=== PATIENT | female | born 1935 | race Caucasian/White ===

== ENCOUNTER 2020-06-08 11:19 | Inpatient (IN) | payer MEDICARE, BC ==
[2020-06-08] MEDS ORDERED: Diltiazem 125 MG/25 ML ONE (11:43)
[2020-06-08 11:50] LABS: #Eosinphils 0.2 thou/uL (0.0-0.7); #Lymphocytes 1.4 thou/uL (1.20-3.40); #Monocytes 1.1 thou/uL (0.11-0.59); #Neutrophils 6.4 thou/uL (1.40-6.50); %Basophils 0.5 % (0.0-1.0); %Eosinophils 2.4 % (0.0-10.0); %Lymphocytes 15.6 % (21.0-51.0); %Monocytes 11.5 % (0.0-10.0); Hemoglobin 10.7 g/dL (12.0-16.0); Mean Corpuscular HGB CONC 30.9 g/dL (32.0-36.0); Mean Corpuscular Volume 93.9 fL (78.0-98.0); Mean Platelet Volume 8.3 fL (7.4-10.4); Platelet Count 479 thou/uL (130-400); RBC Distribution Width 15.2 % (11.5-14.5); Red Blood Cell (RBC) Count 3.68 mill/uL (4.20-5.40); White Blood Cell (WBC) Count 9.2 thou/uL (4.8-10.8)
--- NOTE | 2020-06-08 12:04 | RAD ---
Frontal radiograph chest: 06/08/2020 COMPARISON: 05/15/2020 HISTORY: Atrial fibrillation FINDINGS: The patient is slightly rotated to the right. No pneumothorax or pleural fluid is seen. The re is no lobar consolidation or alveolar edema. IMPRESSION: No acute findings.
[2020-06-08 12:13] LABS: ALT (SGPT) 9 U/L (8-55); AST (SGOT) 21 U/L (5-34); Albumin 3.3 g/dL (3.4-4.8); Alkaline Phosphatase 106 U/L (40-110); Anion Gap 13 mmol/L (10-20); BUN (Urea Nitrogen) 20 mg/dL (9.8-20.1); Bilirubin, Total 0.7 mg/dL (0.2-1.2); Calc. Creatinine Clearance 0 mL/min (70-130); Calcium 9.2 mg/dL (7.8-10.44); Carbon Dioxide 26 mmol/L (23-31); Chloride 101 mmol/L (98-107); Estimated GFR-MDRD 84; Globulin 3.3 g/dL (2.4-3.5); Glucose 171 mg/dL (83-110); Potassium 4.2 mmol/L (3.5-5.1); Protein, Total 6.6 g/dL (6.0-8.3); Sodium 136 mmol/L (136-145)
[2020-06-08] MEDS ORDERED: Iopamidol-370 76% 500 ML 1 ML ONE (14:20)
--- NOTE | 2020-06-08 14:29 | CT ---
CTA CHEST WITH CONTRAST: Axial tomograms were obtained through the chest with multiplanar reconstruction and 3D postprocessing following an angio protocol. INDICATION: Shortness of breath, palpitations. FINDINGS: The pulmonary arteries show adequate opacification. No evidence of pulmonary embolus identified. Th oracic aorta is unremarkable with no evidence of dissection. Mild atherosclerotic changes are seen. No aneurysm. The lung fuentes show mild vascular engorgement. There are mild chronic-appearing parenchymal changes with interstitial thickening in the periphery and interstitial and early honeycomb-type changes in t he posterior lower lobes bilaterally. Stranding in the posterior lung bases. No evidence of effusio n. No evidence of infiltrate. No adenopathy. Images through the upper abdomen unremarkable. Degen erative changes in the spine. IMPRESSION: 1. No evidence of pulmonary embolus. 2. No acute lung process. There are chronic lung changes as described. POS: ROMANA
[2020-06-08 14:51] LABS: Bilirubin Negative (Negative); Blood, Urine Negative (Negative); Clarity Clear (Clear); Glucose, Urine (Dipstick) Normal (Negative); Ketone, Urine Negative (Negative); Leukocyte Negative Leu/uL (Negative); Nitrite Negative (Negative); Protein, Urine (Dipstick) Negative (Neg-Trace); Specific Gravity, Urine 1.047 (1.002-1.036); Urobilinogen Normal mg/dL (Less than 2)
[2020-06-08] MEDS ORDERED: Senokot S 8.6-50 MG TAB PO PRN (14:57)
[2020-06-08] MEDS ORDERED: Acetaminophen 325 MG TAB PO PRN (14:57)
[2020-06-08] MEDS ORDERED: Cyclobenzaprine 10 MG TAB PO PRN (15:30)
[2020-06-08] MEDS ORDERED: Aspirin Chewable 81 MG TAB ONE (15:34)
[2020-06-08 16:03] LABS: Troponin I 0.017 ng/mL (< 0.028)
--- NOTE | 2020-06-08 16:42 | HP ---
CHIEF COMPLAINT: Palpitations and shortness of breath. HISTORY OF PRESENT ILLNESS: An 84-year-old female with recent hospitalization for hip surgery and finished two weeks of rehab and went to her Assisted Living just two days ago, presenting today with atrial fibrillation with RVR. She woke up this morning, feeling not that good and then she used restroom with a walker, noticed that she is having short of breath and pounding sensation in her heart. She has history of afib but this is the first time, she is experiencing palpitations. EMS brought her with initial heart rate of 155. EKG showed pulse of 135 and afib. After shortly starting her on Cardizem drip in the ER, her heart rate improved to 70s. The patient was discharged with Bactrim for E coli on May 31. As part of the hip preop evaluation, she was evaluated by the [employer] assistant manager and started on flecainide and Eliquis for atrial fibrillation at that time. She is compliant in taking her medicine. Currently during my evaluation, her heart rate is in the 80s and it is in sinus rhythm. She is well appearing. Being on a Bactrim, there may be drug interaction triggering her atrial fibrillation. We will admit for further management. REVIEW OF SYSTEMS: She just discharged recently on May 31 after right hip surgery for mechanical fall. She denied any fever, night sweats, chills, or productive cough. No nausea, vomiting, abdominal pain, constipation, diarrhea, hematuria, dysuria, or hematochezia. Denies any headache, tingling, or numbness in her extremities. Rest of the review of systems are negative. PAST MEDICAL HISTORY: Atrial fibrillation, neuropathy, and history of colitis. PAST SURGICAL HISTORY: Hysterectomy. SOCIAL HISTORY: Does not use illicit drugs or alcohol. No smoking history. She lives at [facility]. ALLERGIES: NO KNOWN DRUG ALLERGY. MEDICATIONS: From her last discharge: 1. Toprol 25 mg daily. 2. Ibuprofen as needed. 3. Eliquis 2.5 mg twice a day. 4. Aspirin 81 mg daily. 5. Vitamin C 500 mg twice a day. 6. Bactrim 2 tablets twice a day. 7. Gabapentin 600 mg 3 times a day. 8. Flexeril 5 mg as needed. 9. Flecainide 50 mg q.12 hours. FAMILY HISTORY: Noncontributory. PHYSICAL EXAMINATION: VITAL SIGNS: Temperature 98.2, pulse 84, blood pressure 133/64, and saturating 97% on room air. GENERAL: The patient is alert and oriented x3. She appears well for her age. HEENT: Pupils are equal, round, and reactive to light. Anicteric. Mucous membranes moist. LABORATORY DATA: EKG interpreted by me, shows normal ST-T wave and atrial fibrillation at rate of 135. IMPRESSION AND PLAN: An 84-year-old female with recent right hip surgery, undergone a rehab and went back to her home two days ago, presenting back with short of breath and atrial fibrillation. 1. Atrial fibrillation with rapid ventricular response. After short course of Cardizem drip, she is reverted back to sinus rhythm and rate is controlled now. I am going to restart her home medication of flecainide. Anticoagulation with Eliquis 2.5 based on her age and GFR. Urine culture on May 31 grew Enterococcus faecalis, pansensitive. She has finished almost 8 days of antibiotics. I do not think she requires any further antibiotics. Current UA is negative for any sign of infection. Her white count is normal at 9.2, so I will defer continuing the antibiotics. 2. Elevated D-dimer of 3.1. She was tested for COVID in April and that was negative. Current CT chest is negative for PE. May be refelctive of recent hip surgery. 3. Recent hip surgery. We will request the Physical Therapy to continue the therapy. 4. Does not require an echo as that was done on May 18 and the EF of 65%, normal LA and LV function. 5. COVID was tested and negative on April 30. 6. She is on several sedative medications including gabapentin at high doses, Flexeril, ibuprofen as well as tramadol as probably part of discharging after hip surgery. We will provide now analgesic as needed and reduce the gabapentin, as I am not sure she needs this high dose at this point. 7. Deep venous thrombosis prophylaxis with Eliquis. 8. I did not consult Cardiology at this point as she seems to be stable and afib reverted back to sinus and rate controlled and she can follow in the clinic as she got recently discharged unless current clinical course dictates otherwise. Job ID: [id number] [facility]
[2020-06-08 16:55] VITALS: BMI 18.4
[2020-06-08] MEDS: Ferrous Sulfate 325 MG TAB PO SCH (17:39)
[2020-06-08 18:54] LABS: Troponin I 0.019 ng/mL (< 0.028)
[2020-06-08 19:05] LABS: Hemoglobin 9.2 g/dL (12.0-16.0); Platelet Count 386 thou/uL (130-400)
[2020-06-08] MEDS: Gabapentin 100 MG CAP PO SCH (20:08)
[2020-06-08] MEDS: Ascorbic Acid 500 mg Chewable Tablet PO SCH (20:08)
[2020-06-08] MEDS: Apixaban 2.5 MG TAB PO SCH (20:08)
[2020-06-08] MEDS: Flecainide 50 MG TAB PO SCH (20:08)
[2020-06-09 04:55] LABS: #Basophils 0.1 thou/uL (0.0-0.2); #Eosinphils 0.7 thou/uL (0.0-0.7); #Lymphocytes 1.6 thou/uL (1.20-3.40); #Monocytes 0.8 thou/uL (0.11-0.59); #Neutrophils 3.8 thou/uL (1.40-6.50); %Basophils 0.9 % (0.0-1.0); %Eosinophils 9.6 % (0.0-10.0); %Lymphocytes 23.4 % (21.0-51.0); %Neutrophils 55.2 % (42.0-75.0); Hemoglobin 8.8 g/dL (12.0-16.0); Mean Corpuscular HGB CONC 30.2 g/dL (32.0-36.0); Mean Corpuscular Hemoglobin 28.5 pg (27.0-31.0); Mean Corpuscular Volume 94.4 fL (78.0-98.0); Mean Platelet Volume 8.7 fL (7.4-10.4); Platelet Count 390 thou/uL (130-400); RBC Distribution Width 15.2 % (11.5-14.5); Red Blood Cell (RBC) Count 3.09 mill/uL (4.20-5.40); White Blood Cell (WBC) Count 6.8 thou/uL (4.8-10.8)
[2020-06-09 05:11] LABS: ALT (SGPT) Less than 7 U/L (8-55); AST (SGOT) 18 U/L (5-34); Albumin 2.8 g/dL (3.4-4.8); Alkaline Phosphatase 88 U/L (40-110); Anion Gap 13 mmol/L (10-20); BUN (Urea Nitrogen) 16 mg/dL (9.8-20.1); Bilirubin, Total 0.5 mg/dL (0.2-1.2); Calc. Creatinine Clearance 74 mL/min (70-130); Calcium 8.5 mg/dL (7.8-10.44); Carbon Dioxide 25 mmol/L (23-31); Chloride 104 mmol/L (98-107); Estimated GFR-MDRD Greater than 90; Globulin 2.9 g/dL (2.4-3.5); Glucose 95 mg/dL (83-110); Potassium 4.3 mmol/L (3.5-5.1); Protein, Total 5.7 g/dL (6.0-8.3); Sodium 138 mmol/L (136-145)
[2020-06-09] MEDS ORDERED: Aspirin 81 mg Enteric Coated Tablet PO SCH (09:00)
[2020-06-09] MEDS ORDERED: Polyethylene Glycol 3350 17 GM Packet PO SCH (09:00)
[2020-06-09] MEDS: Ascorbic Acid 500 mg Chewable Tablet PO SCH (10:34)
[2020-06-09] MEDS: Ferrous Sulfate 325 MG TAB PO SCH (10:34)
[2020-06-09] MEDS: Flecainide 50 MG TAB PO SCH (10:34)
[2020-06-09] MEDS: Gabapentin 100 MG CAP PO SCH (10:34)
[2020-06-09] MEDS: Apixaban 2.5 MG TAB PO SCH (10:34)
[2020-06-09 11:39] VITALS: TEMP 97.7
--- NOTE | 2020-06-09 14:55 | PQF ---
CLINICAL DOCUMENTATION CLARIFICATION FORM: Dear Dr. Vivi DUENAS MD Date: 06/09/2020 4747 Please exercise your independent, professional judgment in responding to the clarification form. Clinical indicators are provided on the bottom of this form for your review. Please check appropriate box(es): [ ] Protein Calorie Malnutrition: [ ] Mild [ ] Moderate [ ] Severe [ ] Other Malnutrition (please specify) __ [ ] Underweight without malnutrition [ ] Cachexia [ ] Other diagnosis [ ] Unable to determine In addition, please specify: Present on Admission (POA): [ ] Yes [ ] No [ ] Unable to determine For continuity of documentation, please document condition throughout progress notes and discharge summary. Thank You. To be completed by CDI/Coding staff for physician review: CLINICAL INDICATORS - SIGNS / SYMPTOMS / LABS / RESULTS AND LOCATION IN MR 06/09 RD ASSESSMENT: BMI 18.4; NUTRITION DIAGNOSIS MALNUTRITION RELATED TO POSSIBLY AGING PROCESS EVIDENCED BY MODERATE TEMPORALIS MUSCLE AND MILD BUCCAL FAT PAD WASTING. RISK FACTORS / RESULTS AND LOCATION IN MR ADVANCED AGE ( 84) , RECENT HIP SURGERY, (H&P/YULISSA) 06/08 TREATMENT / RESULTS AND LOCATION IN MR DIETARY CONSULT (06/09) RECOMMEND ENSURE ENLIVE QD (/06/09) Moderate Malnutrition (in acute illness) Energy Intake: <75% of estimated energy requirement for > 7 days Weight Loss: 1-2%/1 week; 5%/ 1 month; 7.5%/3 months Other: mild body fat loss; mild muscle mass loss; mild fluid accumulation; Severe Malnutrition (in acute illness) Energy Intake: = 50% of estimated energy requirement for = 5 days Weight Loss: >2%/1 week; >5%/1 month; >7.5%/3 months Other: moderate body fat loss; moderate muscle mass loss; moderate- severe fluid accumulation; measurably reduced [employer] worker strength Moderate Malnutrition (in chronic illness) Energy Intake: <75% of estimated energy requirement for =1 month Weight Loss: 5%/1 month; 7.5%/3 months; 10%/6 months; 20%/1 year Other: mild body fat loss; mild muscle mass loss; mild fluid accumulation Severe Malnutrition (in chronic illness) Energy Intake: =75% of estimated energy requirement for =1 month Weight Loss: >5%/1 month; >7.5%/3 months; >10%/6 months; >20%/1 year Other: severe body fat loss; severe muscle mass loss; severe fluid accumulation; 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 CDS Signature: ANTHONY MENA RN Phone #: [phone] Date: 06/09/2020 This is a permanent part of the Medical Record [facility]
[2020-06-09 20:57] VITALS: BP 177/71
--- NOTE | 2020-06-11 12:03 | DIS ---
DATE OF ADMISSION: 06/08/2020 DATE OF DISCHARGE: 06/09/2020 DISCHARGE DIAGNOSES: 1. Atrial fibrillation with rapid ventricular response, reverted back to sinus rhythm and rate controlled. 2. Elevated D-dimer, probably reflective of recent hip surgery. 3. Right hip surgery and completed two weeks of rehab. 4. COVID negative on April 30. 5. Neuropathy. 6. History of colitis. DISCHARGE MEDICATIONS: Remain the same. There is no change in her previous home medications except the Bactrim is discontinued as she completed her antibiotic course. HOSPITAL COURSE: This is an 84-year-old female with a history of atrial fibrillation, started on flecainide and Eliquis during her last hospitalization as part of preop workup before right hip surgery and right hip hemiarthroplasty on May 16, preceded by right femoral neck fracture displaced, then followed by two weeks of rehab, presented with shortness of breath and palpitations to the ER. Shortly after Cardizem drip started, she reverted back to sinus rhythm and her rate is controlled. She is on flecainide as well as Toprol-XL, and I have not started any other blockers at this point as her rate overnight seems to be well. In the morning, she has no complaints. She does have a Cardiology appointment this week. She is compliant with following her medications and clinic appointments. Her daughter will be following her shortly to give her a ride back home. DISCHARGE INSTRUCTIONS: Activity as tolerated. Healthy heart diet. Follow up with the PCP in 1 week. Follow up with your advertising account representative as planned earlier. Discharge time took over 35 minutes. Job ID: [id number]
== END 2020-06-09 15:30 | disposition home or self-care (01) | DRG 310 ==
LOC: ERS 11:19 → 2NO 15:04
PROVIDERS: ADMIT Internal Medicine; ATTEND Internal Medicine
DX: I48.91 Unspecified atrial fibrillation (principal); G62.9 Polyneuropathy, unspecified; Z79.899 Other long term (current) drug therapy; Z79.82 Long term (current) use of aspirin; Z79.01 Long term (current) use of anticoagulants
CPT/HCPCS: 36415; 71045; 71275; 80053; 81003; 84484; 85025; 85379; 87086; 93005; Q9967

== ENCOUNTER 2020-06-16 12:54 | Emergency (ER) | payer MEDICARE, BC ==
--- NOTE | 2020-06-16 14:20 | ULT ---
EXAM: Right lower extremity venous Doppler US HISTORY: Right lower extremity edema and pain FINDINGS: Grayscale, color-flow, Doppler evaluation, spectral analysis of the right lower extremity venous stru ctures is performed with 2-D imaging. The right common femoral, superficial femoral, popliteal, posterior tibial, proximal greater saphenous and profunda femoral veins are imaged. There is normal luminal compressibility, flow, and augmentation the visualized deep venous structures of the right lower extremity. IMPRESSION: No evidence of a deep vein thrombosis in the right lower extremity.
== END 2020-06-16 14:38 | disposition home or self-care (01) ==
LOC: ERS 12:54
DX: R22.41 Localized swelling, mass and lump, right lower limb (principal); I48.91 Unspecified atrial fibrillation; Z79.82 Long term (current) use of aspirin; Z79.01 Long term (current) use of anticoagulants

== ENCOUNTER 2020-06-26 07:49 | Outpatient (CLI) | payer MEDICARE, BC, OTHER ==
[2020-06-26 16:19] LABS: Hemoglobin 11.1 g/dL (12.0-16.0); Mean Corpuscular HGB CONC 30.9 g/dL (32.0-36.0); Mean Corpuscular Hemoglobin 29.3 pg (27.0-31.0); Mean Corpuscular Volume 94.9 fL (78.0-98.0); Mean Platelet Volume 9.7 fL (7.4-10.4); Platelet Count 311 thou/uL (130-400); RBC Distribution Width 15.9 % (11.5-14.5); Red Blood Cell (RBC) Count 3.78 mill/uL (4.20-5.40); White Blood Cell (WBC) Count 9.4 thou/uL (4.8-10.8)
[2020-06-26 16:41] LABS: Prothrombin Time 13.2 sec (12.0-14.7)
[2020-06-26 16:53] LABS: Anion Gap 14 mmol/L (10-20); BUN (Urea Nitrogen) 23 mg/dL (9.8-20.1); Calc. Creatinine Clearance 0 mL/min (70-130); Calcium 9.4 mg/dL (7.8-10.44); Carbon Dioxide 27 mmol/L (23-31); Chloride 101 mmol/L (98-107); Estimated GFR-MDRD 69; Glucose 149 mg/dL (83-110); Sodium 137 mmol/L (136-145)
[2020-06-27 14:56] LABS: SARS-CoV-2 MS2 Positive; SARS-CoV-2 N Gene Negative; SARS-CoV-2 S Gene Negative; SARS-CoV-2 by NAA Not Detected (NotDetected); SARS-CoV-2 orf1ab Negative
== END 2020-06-26 07:50 | disposition home or self-care (01) ==
LOC: LABBT 07:49
PROVIDERS: ATTEND Internal Medicine Cardiovascular Disease
DX: Z01.812 Encounter for preprocedural laboratory examination (principal); Z20.828 Contact with and (suspected) exposure to other viral communicable diseases; I49.5 Sick sinus syndrome; R55 Syncope and collapse
CPT/HCPCS: 80048; 85027; 85610; U0003; 87635

== ENCOUNTER 2020-06-29 05:57 | Day surgery (SDC) | payer MEDICARE, BC ==
[2020-06-27 10:03] VITALS: BMI 17.9
[2020-06-29] MEDS ORDERED: Vancomycin 1.5 GRAM/300 ML BAG ONE (06:21)
[2020-06-29] MEDS ORDERED: Gentamicin 80 MG/2 ML VIAL ONE (07:01)
[2020-06-29] MEDS ORDERED: CEFAZOLIN 1 GM VIAL ONE (07:01)
[2020-06-29] MEDS ORDERED: Lidocaine 1% (PF) 30 ML VIAL ONE ×2 (07:11→07:20)
[2020-06-29] MEDS ORDERED: Midazolam HCl 2 mg/2 ml Vial ONE (07:23)
[2020-06-29] MEDS ORDERED: Fentanyl 100 MCG/2 ML VIAL ONE (07:23)
--- NOTE | 2020-06-29 10:15 | RAD ---
CHEST 1 VIEW: Date: 06/29/2020 HISTORY: Status post pacemaker placement. COMPARISON: 06/08/2020 exam. FINDINGS: Heart size and mediastinum are within normal limits. A pacemaker has been placed. I do not see any si gns of pneumothorax. IMPRESSION: Post pacemaker placement. No signs for pneumothorax. POS: ASHOK
--- NOTE | 2020-06-29 13:24 | EKG ---
Test Reason : POST PACEMAKER INSER Blood Pressure : / mmHG Vent. Rate : 068 BPM Atrial Rate : 068 BPM P-R Int : 214 ms QRS Dur : 092 ms QT Int : 414 ms P-R-T Axes : 076 055 063 degrees QTc Int : 440 ms Sinus rhythm Electronic atrial pacemaker with 1st degree A-V block Otherwise normal ECG Confirmed by ALEX KELLEY ([id number]) on 06/29/2020 1:24:39 PM Referred By: JOSE Confirmed By:ALEX KELLEY
== END 2020-06-29 13:07 | disposition home or self-care (01) ==
LOC: CCL 05:57
PROVIDERS: ATTEND Internal Medicine Cardiovascular Disease
PROC: 0JH606Z Insertion of Pacemaker, Dual Chamber into Chest Subcutaneous Tissue and Fascia, Open Approach (ICD-10-PCS; principal; 2020-06-29)
PROC: 02H63JZ Insertion of Pacemaker Lead into Right Atrium, Percutaneous Approach (ICD-10-PCS; 2020-06-29)
PROC: 02HK3JZ Insertion of Pacemaker Lead into Right Ventricle, Percutaneous Approach (ICD-10-PCS; 2020-06-29)
DX: I49.5 Sick sinus syndrome (principal); R00.1 Bradycardia, unspecified; I48.0 Paroxysmal atrial fibrillation; R55 Syncope and collapse; G62.9 Polyneuropathy, unspecified; Z79.01 Long term (current) use of anticoagulants; Z79.82 Long term (current) use of aspirin; Z79.899 Other long term (current) drug therapy
CPT/HCPCS: 71045; 93005; 93010; C1785; C1898; J0690; J1580; J2001; J2250; J3010; J3370

== ENCOUNTER 2021-04-27 14:00 | Observation (INO) | payer MEDICARE, BC ==
[2021-04-27 15:02] LABS: #Eosinphils 0.1 thou/uL (0.0-0.7); #Lymphocytes 2.4 thou/uL (1.20-3.40); #Monocytes 0.6 thou/uL (0.11-0.59); #Neutrophils 5.1 thou/uL (1.40-6.50); %Basophils 0.3 % (0.0-1.0); %Eosinophils 1.7 % (0.0-10.0); %Lymphocytes 28.9 % (21.0-51.0); %Monocytes 6.7 % (0.0-10.0); %Neutrophils 62.3 % (42.0-75.0); Mean Corpuscular HGB CONC 32.5 g/dL (32.0-36.0); Mean Corpuscular Hemoglobin 31.1 pg (27.0-31.0); Mean Corpuscular Volume 95.8 fL (78.0-98.0); Mean Platelet Volume 9.5 fL (7.4-10.4); Platelet Count 192 thou/uL (130-400); RBC Distribution Width 12.6 % (11.5-14.5); Red Blood Cell (RBC) Count 4.18 mill/uL (4.20-5.40); White Blood Cell (WBC) Count 8.1 thou/uL (4.8-10.8)
[2021-04-27 15:23] LABS: ALT (SGPT) 16 U/L (8-55); AST (SGOT) 29 U/L (5-34); Albumin 4.3 g/dL (3.4-4.8); Alkaline Phosphatase 86 U/L (40-110); Anion Gap 12 mmol/L (10-20); BUN (Urea Nitrogen) 19 mg/dL (9.8-20.1); Bilirubin, Total 0.4 mg/dL (0.2-1.2); Calc. Creatinine Clearance 0 mL/min (70-130); Calcium 9.7 mg/dL (7.8-10.44); Carbon Dioxide 29 mmol/L (23-31); Chloride 103 mmol/L (98-107); Globulin 3.1 g/dL (2.4-3.5); Glucose 101 mg/dL (83-110); Potassium 3.9 mmol/L (3.5-5.1); Protein, Total 7.4 g/dL (5.8-8.1); Sodium 140 mmol/L (136-145)
[2021-04-27 15:53] LABS: Bacteria/HPF None Seen HPF (None Seen); Bilirubin Negative (Negative); Blood, Urine Negative (Negative); Clarity Clear (Clear); Glucose, Urine (Dipstick) Normal (Negative); Ketone, Urine Negative (Negative); Leukocyte 250 Leu/uL (Negative); Nitrite Negative (Negative); Protein, Urine (Dipstick) Negative (Neg-Trace); RBC/HPF 0-3 HPF (0-3); Squamous Epithelial None Seen HPF (0-3); Urobilinogen Normal mg/dL (Less than 2); WBC/HPF 0-3 HPF (0-3); pH, Urine 6.5 (5.0-9.0)
[2021-04-27] MEDS ORDERED: hydrALAZINE 20 MG/ML VIAL SLOW IVP PRN (18:37)
[2021-04-27] MEDS ORDERED: Labetalol HCl 100 MG/20 ML VIAL SLOW IVP PRN (18:37)
[2021-04-27] MEDS ORDERED: HYDROcodone/Acetaminophen 5/325 mg Tablet PO PRN (18:41)
[2021-04-27] MEDS ORDERED: Acetaminophen 325 MG TAB PO PRN (18:41)
[2021-04-27] MEDS ORDERED: HYDROcodone/Acetaminophen 10/325 mg Tablet PO PRN (18:41)
[2021-04-27 19:49] LABS: Hemoglobin 12.5 g/dL (12.0-16.0); Platelet Count 187 thou/uL (130-400)
[2021-04-27] MEDS ORDERED: Non-Formulary Item 1 EACH (Gabapentin [Gabapentin] 600 MG Tablet) PO PRN (23:20)
[2021-04-27] MEDS ORDERED: Apixaban 2.5 MG TAB PO SCH (23:30)
[2021-04-27] MEDS ORDERED: Gabapentin 300 MG CAP PO PRN (23:38)
[2021-04-28 03:29] VITALS: BMI 18.1
[2021-04-28 05:22] LABS: Anion Gap 6 mmol/L (10-20); BUN (Urea Nitrogen) 13 mg/dL (9.8-20.1); Calc. Creatinine Clearance 66 mL/min (70-130); Calcium 8.9 mg/dL (7.8-10.44); Carbon Dioxide 32 mmol/L (23-31); Cardiac Risk 3.1 (Less than 4.5); Chloride 106 mmol/L (98-107); Cholesterol 138 mg/dl (< 200 Desired); Glucose 70 mg/dL (83-110); HDL Cholesterol 44 mg/dL (>60 Neg Risk); LDL Cholesterol, Calculated 80 mg/dL; Potassium 3.6 mmol/L (3.5-5.1); Sodium 140 mmol/L (136-145); Triglycerides 70 mg/dL (Less than 150)
[2021-04-28 06:10] LABS: #Basophils 0.1 thou/uL (0.0-0.2); #Eosinphils 0.3 thou/uL (0.0-0.7); #Lymphocytes 2.1 thou/uL (1.20-3.40); #Monocytes 0.6 thou/uL (0.11-0.59); #Neutrophils 3.8 thou/uL (1.40-6.50); %Basophils 0.9 % (0.0-1.0); %Eosinophils 3.8 % (0.0-10.0); %Monocytes 9.1 % (0.0-10.0); %Neutrophils 55.2 % (42.0-75.0); Mean Corpuscular HGB CONC 32.6 g/dL (32.0-36.0); Mean Corpuscular Volume 95.2 fL (78.0-98.0); Mean Platelet Volume 9.9 fL (7.4-10.4); Platelet Count 181 thou/uL (130-400); RBC Distribution Width 12.4 % (11.5-14.5); Red Blood Cell (RBC) Count 3.88 mill/uL (4.20-5.40); White Blood Cell (WBC) Count 6.9 thou/uL (4.8-10.8)
[2021-04-28] MEDS ORDERED: Aspirin 81 mg Enteric Coated Tablet PO SCH (09:00)
[2021-04-28] MEDS ORDERED: Amlodipine 5 MG TAB PO SCH (09:00)
[2021-04-28] MEDS ORDERED: Apixaban 2.5 MG TAB PO SCH (09:00)
[2021-04-28 12:07] VITALS: BP 142/68; TEMP 98.1
[2021-04-28 12:50] LABS: SARS-CoV-2 PCR by NAA Not Detected (NotDetected)
== END 2021-04-28 15:27 | disposition home or self-care (01) ==
LOC: SUATTDRO 14:00 → ERS 14:00 → 2SE 17:49
PROVIDERS: ADMIT Family Medicine; ATTEND Family Medicine
DX: G93.40 Encephalopathy, unspecified (principal); H53.8 Other visual disturbances; I10 Essential (primary) hypertension; K51.90 Ulcerative colitis, unspecified, without complications; R35.0 Frequency of micturition; I48.0 Paroxysmal atrial fibrillation; I49.5 Sick sinus syndrome; D32.0 Benign neoplasm of cerebral meninges; R90.0 Intracranial space-occupying lesion found on diagnostic imaging of central nervous system; Z20.822 Contact with and (suspected) exposure to COVID-19; Z79.82 Long term (current) use of aspirin; Z79.899 Other long term (current) drug therapy; Z95.0 Presence of cardiac pacemaker
CPT/HCPCS: 70450; 80048; 80061; 84484; 85014; 85018; 85025; 85049; 87086; 93005; 93880; 97116; 97139; 99285; U0003; U0005; 36415; 80053; 81003; 81015; 84443; G0378

== ENCOUNTER 2021-07-09 13:33 | Outpatient (CLI) | payer MEDICARE, BC | END 2021-07-09 13:34 | disposition home or self-care (01) | LOC: LABBT 13:33 | PROVIDERS: ATTEND Internal Medicine Cardiovascular Disease | DX: Z01.812 Encounter for preprocedural laboratory examination (principal); I48.0 Paroxysmal atrial fibrillation; K92.2 Gastrointestinal hemorrhage, unspecified; Z20.822 Contact with and (suspected) exposure to COVID-19 | CPT/HCPCS: 80053; 85027; 85610; 86850; 86900; 86901; U0003; U0005 ==

== ENCOUNTER 2021-07-09 13:45 | Inpatient (IN) | payer MEDICARE, BC ==
[2021-07-09 14:36] LABS: Hemoglobin 14.3 g/dL (12.0-15.5); Mean Corpuscular Hemoglobin 26.7 pg (27.0-33.0); Mean Corpuscular Volume 86.2 fl (81.6-98.3); Mean Platelet Volume 11.7 fl (7.4-10.4); Platelet Count 204 10x3/uL (150-450); RBC Distribution Width 13.7 % (11.5-14.5); Red Blood Cell (RBC) Count 5.35 10x6/uL (3.90-5.03); White Blood Cell (WBC) Count 7.5 10x3/uL (3.5-10.5)
[2021-07-09 14:43] LABS: ALT (SGPT) 27 U/L (8-55); AST (SGOT) 31 U/L (5-34); Alkaline Phosphatase 97 U/L (40-110); Anion Gap 16 mmol/L (10-20); BUN (Urea Nitrogen) 21 mg/dL (9.8-20.1); Bilirubin, Total 0.4 mg/dL (0.2-1.2); Calc. Creatinine Clearance 0 mL/min (70-130); Calcium 10.3 mg/dL (7.8-10.44); Carbon Dioxide 25 mmol/L (23-31); Chloride 102 mmol/L (98-107); Globulin 3.2 g/dL (2.4-3.5); Glucose 90 mg/dL (83-110); Potassium 4.5 mmol/L (3.5-5.1); Protein, Total 7.2 g/dL (5.8-8.1); Sodium 138 mmol/L (136-145)
[2021-07-09 14:52] LABS: Prothrombin Time 10.6 sec (9.5-12.1)
[2021-07-10 14:37] LABS: SARS-CoV-2 PCR by NAA Not Detected (NotDetected)
[2021-07-11 10:43] VITALS: BMI 18.2
[2021-07-12] MEDS ORDERED: Heparin 10,000 UNITS/ 10 ML VIAL ONE ×2 (06:37→09:11)
[2021-07-12] MEDS ORDERED: Fentanyl 100 MCG/2 ML VIAL ONE (07:06)
[2021-07-12] MEDS ORDERED: CEFAZOLIN 1 GM VIAL ONE (07:19)
[2021-07-12] MEDS ORDERED: Protamine Sulfate 50 MG/5 ML VIAL ONE (09:11)
[2021-07-12] MEDS ORDERED: Iopamidol 370 76% 100 ML VIAL ONE (12:54)
== END 2021-07-12 14:10 | disposition home or self-care (01) | DRG 229 ==
LOC: SURG A 07-12 06:11
PROVIDERS: ADMIT Internal Medicine Cardiovascular Disease; ATTEND Internal Medicine Cardiovascular Disease
PROC: 02H73DZ Insertion of Intraluminal Device into Left Atrium, Percutaneous Approach (ICD-10-PCS; principal; 2021-07-12)
PROC: 02PA3DZ Removal of Intraluminal Device from Heart, Percutaneous Approach (ICD-10-PCS; 2021-07-12)
PROC: 4A023N7 Measurement of Cardiac Sampling and Pressure, Left Heart, Percutaneous Approach (ICD-10-PCS; 2021-07-12)
PROC: B24BZZ4 Ultrasonography of Heart with Aorta, Transesophageal (ICD-10-PCS; 2021-07-12)
PROC: B2151ZZ Fluoroscopy of Left Heart using Low Osmolar Contrast (ICD-10-PCS; 2021-07-12)
DX: I48.0 Paroxysmal atrial fibrillation (principal); Z20.822 Contact with and (suspected) exposure to COVID-19; Z00.6 Encounter for examination for normal comparison and control in clinical research program; I49.5 Sick sinus syndrome; G62.9 Polyneuropathy, unspecified; I10 Essential (primary) hypertension; D64.9 Anemia, unspecified; Z90.710 Acquired absence of both cervix and uterus; Z79.01 Long term (current) use of anticoagulants; Z79.899 Other long term (current) drug therapy
CPT/HCPCS: 33340; 36430; 71275; 80053; 82565; 85027; 85347; 85610; 86850; 86900; 86901; 93312; C1759; J0690; J1644; J2720; J3010; Q9967; U0003; U0005

== ENCOUNTER 2022-02-15 13:50 | Outpatient (CLI) | payer MEDICARE, BC ==
[2022-02-15 15:15] LABS: Hemoglobin 13.3 g/dL (12.0-15.5); Mean Corpuscular HGB CONC 31.2 g/dL (32.0-36.0); Mean Corpuscular Hemoglobin 26.3 pg (27.0-33.0); Mean Corpuscular Volume 84.2 fl (81.6-98.3); Mean Platelet Volume 11.9 fl (7.4-10.4); Platelet Count 277 10x3/uL (150-450); RBC Distribution Width 15.1 % (11.5-14.5); Red Blood Cell (RBC) Count 5.06 10x6/uL (3.90-5.03); White Blood Cell (WBC) Count 9.4 10x3/uL (3.5-10.5)
[2022-02-15 15:27] LABS: INR-International Normal Ratio 0.9
[2022-02-15 15:39] LABS: Anion Gap 17 mmol/L (10-20); BUN (Urea Nitrogen) 21 mg/dL (9.8-20.1); Calc. Creatinine Clearance 0 mL/min (70-130); Calcium 9.9 mg/dL (7.8-10.44); Carbon Dioxide 28 mmol/L (23-31); Chloride 102 mmol/L (98-107); Glucose 80 mg/dL (83-110); Potassium 4.7 mmol/L (3.5-5.1); Sodium 142 mmol/L (136-145)
[2022-02-16 16:33] LABS: SARS-CoV-2 PCR by NAA Not Detected (NotDetected)
== END 2022-02-15 13:51 | disposition home or self-care (01) ==
LOC: LABBT 13:50
PROVIDERS: ATTEND Internal Medicine Cardiovascular Disease
DX: Z01.812 Encounter for preprocedural laboratory examination (principal); I48.0 Paroxysmal atrial fibrillation; Z95.818 Presence of other cardiac implants and grafts; Z20.822 Contact with and (suspected) exposure to COVID-19
CPT/HCPCS: 80048; 85027; 85610; U0003; U0005

== ENCOUNTER 2022-02-19 08:18 | Day surgery (SDC) | payer MEDICARE, BC ==
[2022-02-15 13:06] VITALS: BMI 18.6
[2022-02-19] MEDS ORDERED: PROPOFOL 200 MG/20 ML VIAL ONE (10:15)
[2022-02-19] MEDS ORDERED: Lidocaine 1% PF 5 ML VIAL ONE (10:15)
== END 2022-02-19 11:27 | disposition home or self-care (01) ==
LOC: SDC 08:18
PROVIDERS: ATTEND Internal Medicine Cardiovascular Disease
PROC: B246ZZ4 Ultrasonography of Right and Left Heart, Transesophageal (ICD-10-PCS; principal; 2022-02-19)
DX: I48.0 Paroxysmal atrial fibrillation (principal); I51.7 Cardiomegaly; Z79.02 Long term (current) use of antithrombotics/antiplatelets; Z79.82 Long term (current) use of aspirin; Z79.899 Other long term (current) drug therapy; Z95.0 Presence of cardiac pacemaker; Z95.818 Presence of other cardiac implants and grafts
CPT/HCPCS: 93312; J2704

== ENCOUNTER 2024-11-07 15:25 | Emergency (ER) | payer MEDICARE, BC | END 2024-11-07 17:14 | disposition home or self-care (01) | LOC: ERS 15:25 | DX: S30.0XXA Contusion of lower back and pelvis, initial encounter (principal); I10 Essential (primary) hypertension; I48.91 Unspecified atrial fibrillation; W18.30XA Fall on same level, unspecified, initial encounter | CPT/HCPCS: 72192 ==